=== PATIENT | female | born 1985 | race Caucasian/White ===

== ENCOUNTER → 2019-10-27 | Outpatient (CLI) | payer BC ==
[~2019-10-27] MED LIST: ADDERALL30 MG PO; ALBUTEROL0.83 MG/ML IH; ASPIRIN 81M81 MG/TA2 PO; LEVOTHYROXINE PO; LORTAB 5/500 501 TAB PO; NEB; PERCOCET 325 MG1 TA2 PO; PHENERGAN W/CO120 M1 PO; PHENERGAN W/CO120 ML PO; PREDNISONE20 MG PO; PROVENTIL0.09 MG/A1 IH; RT ADVAIR 128 DISKUS IH; RT ALBUTER2.5 MG/0.5 IH; SINGULAIR10 MG PO; SYNTHROID0.075 MG/T PO; ZITHROMAX 250M250 MG PO; symbicort
== END ==
LOC: COL.RAD 08:18
DX: Z01.812 Encounter for preprocedural laboratory examination (principal); K63.89 Other specified diseases of intestine; I31.3 Pericardial effusion (noninflammatory); R19.7 Diarrhea, unspecified
CPT/HCPCS: Q9967

== ENCOUNTER → 2019-11-24 | Outpatient (CLI) | payer BC | LOC: COL.VAS 11:44 | DX: I35.0 Nonrheumatic aortic (valve) stenosis (principal); I31.3 Pericardial effusion (noninflammatory) ==

== ENCOUNTER 2020-07-30 12:23 | Emergency (ER) | payer BC ==
[~2020-07-30] VITALS: Ht 160 cm; Wt 102.3 kg
[2020-07-30] MEDS ORDERED: AMOXICILLIN 50500 MG PO (12:53)
[2020-07-30] MEDS ORDERED: BACTRIM DS 8001 TAB PO (12:53)
[2020-07-30 13:05] VITALS: BP 149/64; PULSE 80; TEMP 99.1
== END 2020-07-30 13:11 | disposition home or self-care (01) ==
LOC: COL.ER 12:23
DX: N61.0 Mastitis without abscess (principal); Z88.1 Allergy status to other antibiotic agents; Z91.040 Latex allergy status; Z88.5 Allergy status to narcotic agent; Z79.51 Long term (current) use of inhaled steroids

== ENCOUNTER 2020-12-18 05:52 | Emergency (ER) | payer SELFPAY ==
[~2020-12-18] VITALS: Ht 165.1 cm; Wt 111.8 kg
[~2020-12-18 05:52] MED LIST changes: +AMOXICILLIN 50500 MG PO; +BACTRIM DS 8001 TAB PO
[2020-12-18 06:01] VITALS: BP 136/83; TEMP 97.5
[2020-12-18] MEDS ORDERED: ALBUTEROL0.83 MG/ML IH (06:35)
[2020-12-18] MEDS ORDERED: NEB MC (06:35)
[2020-12-18] MEDS ORDERED: PROAIR HFA0.09 MG/AC IH (06:35)
[2020-12-18 07:30] VITALS: PULSE 89
== END 2020-12-18 07:30 | disposition home or self-care (01) ==
LOC: COL.ER 05:52
DX: J45.901 Unspecified asthma with (acute) exacerbation (principal); E03.9 Hypothyroidism, unspecified; F17.210 Nicotine dependence, cigarettes, uncomplicated; Z20.822 Contact with and (suspected) exposure to COVID-19; Z79.890 Hormone replacement therapy; Z79.899 Other long term (current) drug therapy
CPT/HCPCS: J7512

== ENCOUNTER 2021-08-22 01:46 | Emergency (ER) | payer SELFPAY ==
[~2021-08-22] VITALS: Ht 160 cm; Wt 104.5 kg
[~2021-08-22 01:46] MED LIST changes: +NEB MC; +PROAIR HFA0.09 MG/AC IH
[2021-08-22 02:09] LABS: BASO # 0.1 K/mm3 (0.0-0.2); BASO % 0.7 % (0.0-2.0); EOS # 0.3 K/mm3 (0.0-0.7); EOS % 2.5 % (0.0-4.0); GRAN # 7.8 K/mm3 (1.4-6.5); GRAN % 61.2 % (42.2-75.2); LYMPH # 3.6 K/mm3 (1.2-3.4); LYMPH % 28.1 % (20.0-51.0); MEAN CELL VOLUME 85 fl (80.0-100.0); MEAN CORPUSCULAR HEMOGLOBIN 28 pg (27-31); MEAN CORPUSCULAR HGB CONC 33 g/dl (33.0-37.0); MEAN PLATELET VOLUME 10.5 fl (7.4-10.4); MONO # 0.8 K/mm3 (0.1-0.6); MONO % 6.4 % (1.7-9.3); PLATELET COUNT 233 K/mm3 (130-400); REDCELL DISTRIBUTION WIDTH-CV 15.7 % (11.5-14.5)
[2021-08-22 02:26] LABS: ALBUMIN 4.5 gm/dL (3.5-5.0); BILIRUBIN,TOTAL 0.4 mg/dL (0.2-1.2); CALCIUM 9.1 mg/dL (8.4-10.2); CREATININE, serum 1.15 mg/dL (0.57-1.11); POTASSIUM 3.9 mmol/L (3.5-4.5); TOTAL PROTEIN 8.2 gm/dL (6.2-8.1)
[2021-08-22 03:05] LABS: COLLECTION METHOD CLEAN CATCH
[2021-08-22 03:12] LABS: MUCOUS Present (NOT PRESENT); PH 6 (5-8); URINE APPEARANCE Hazy (CLEAR/HAZY); URINE BACTERIA Rare /hpf (NONE SEEN); URINE BILIRUBIN Negative (NEGATIVE); URINE BLOOD Negative (NEGATIVE); URINE COLOR Yellow (YELLOW); URINE GLUCOSE Negative (NEGATIVE); URINE KETONE Negative (NEGATIVE); URINE LEUKOCYTE ESTERASE Negative (NEGATIVE); URINE NITRATE Negative (NEGATIVE); URINE PROTEIN(semi-quant) Negative (NEGATIVE); URINE RBC 0-2 /hpf (0-2)
[2021-08-22 03:47] VITALS: BP 124/82; PULSE 87; TEMP 97.9
== END 2021-08-22 03:47 | disposition home or self-care (01) ==
LOC: COL.ER 01:46
PROVIDERS: Physician Assistant
DX: D64.9 Anemia, unspecified (principal); R00.0 Tachycardia, unspecified; E03.9 Hypothyroidism, unspecified; Z91.040 Latex allergy status; Z79.890 Hormone replacement therapy
CPT/HCPCS: J7030

== ENCOUNTER 2021-09-12 00:58 | Emergency (ER) | payer BC ==
[~2021-09-12] VITALS: Ht 160 cm; Wt 104.5 kg
[2021-09-12 01:09] VITALS: TEMP 97.6
[2021-09-12 02:03] LABS: BASO # 0.1 K/mm3 (0.0-0.2); BASO % 0.8 % (0.0-2.0); EOS # 0.3 K/mm3 (0.0-0.7); EOS % 2.7 % (0.0-4.0); GRAN # 6.5 K/mm3 (1.4-6.5); GRAN % 62.4 % (42.2-75.2); HEMOGLOBIN 10.9 g/dl (12.5-16.0); LYMPH # 2.9 K/mm3 (1.2-3.4); LYMPH % 27.8 % (20.0-51.0); MEAN CELL VOLUME 85 fl (80.0-100.0); MEAN CORPUSCULAR HEMOGLOBIN 28 pg (27-31); MEAN CORPUSCULAR HGB CONC 33 g/dl (33.0-37.0); MONO # 0.6 K/mm3 (0.1-0.6); MONO % 5.6 % (1.7-9.3); PLATELET COUNT 236 K/mm3 (130-400); RED BLOOD COUNT 3.94 M/mm3 (4.10-5.30); REDCELL DISTRIBUTION WIDTH-CV 14.8 % (11.5-14.5)
[2021-09-12 02:04] LABS: HEMATOCRIT 33.5 % (37.0-47.0)
[2021-09-12 02:18] LABS: ALANINE AMINOTRANSFERASE 16 U/L (0-55); ALKALINE PHOSPHATASE 54 U/L (40-150); ANION GAP 12 mmol/L (7-16); AST,SGOT 13 U/L (5-34); BILIRUBIN,TOTAL 0.4 mg/dL (0.2-1.2); BLOOD UREA NITROGEN 11 mg/dL (7-19); CALCIUM 8.4 mg/dL (8.4-10.2); CARBON DIOXIDE 21 mmol/L (22-29); CHLORIDE 106 mmol/L (98-107); CREATININE, serum 0.99 mg/dL (0.57-1.11); GLUCOSE 105 mg/dL (70-99); POTASSIUM 3.7 mmol/L (3.5-4.5); SODIUM 139 mmol/L (136-145); TOTAL PROTEIN 7.9 gm/dL (6.2-8.1)
[2021-09-12 02:26] LABS: TROPONIN-I < 0.010 ng/mL (0.00-0.033)
[2021-09-12] MEDS ORDERED: PREDNISONE20 MG PO (02:59)
[2021-09-12 03:24] VITALS: BP 122/81; PULSE 74
== END 2021-09-12 03:25 | disposition home or self-care (01) ==
LOC: COL.ER 00:58
PROVIDERS: Emergency Medicine
DX: R07.81 Pleurodynia (principal); F17.200 Nicotine dependence, unspecified, uncomplicated; Z91.040 Latex allergy status; Z82.49 Family history of ischemic heart disease and other diseases of the circulatory system; Z82.5 Family history of asthma and other chronic lower respiratory diseases
CPT/HCPCS: J1885; J7512

== ENCOUNTER 2024-03-15 11:35 | Inpatient (IN) | payer SELFPAY ==
[~2024-03-15] VITALS: Ht 160 cm; Wt 133.5 kg
[~2024-03-15 11:35] MED LIST changes: +FLEXERIL 1010 MG/TAB PO
[2024-03-15 12:38] LABS: BASO # 0.1 K/mm3 (0.0-0.2); BASO % 0.6 % (0.0-2.0); EOS # 0.3 K/mm3 (0.0-0.7); GRAN # 7.3 K/mm3 (1.4-6.5); GRAN % 67.5 % (42.2-75.2); HEMATOCRIT 33.4 % (37.0-47.0); HEMOGLOBIN 10.6 g/dl (12.5-16.0); LYMPH # 2.4 K/mm3 (1.2-3.4); LYMPH % 21.7 % (20.0-51.0); MEAN CELL VOLUME 80 fl (80.0-100.0); MEAN CORPUSCULAR HEMOGLOBIN 25 pg (27-31); MEAN CORPUSCULAR HGB CONC 32 g/dl (33.0-37.0); MEAN PLATELET VOLUME 10.8 fl (7.4-10.4); MONO # 0.6 K/mm3 (0.1-0.6); MONO % 5.9 % (1.7-9.3); PLATELET COUNT 259 K/mm3 (130-400)
[2024-03-15 12:59] LABS: ALANINE AMINOTRANSFERASE 9 U/L (0-55); ALKALINE PHOSPHATASE 58 U/L (40-150); ANION GAP 11 mmol/L (7-16); AST,SGOT 11 U/L (5-34); BILIRUBIN,TOTAL 0.7 mg/dL (0.2-1.2); BLOOD UREA NITROGEN 12 mg/dL (7-19); CALCIUM 8.8 mg/dL (8.4-10.2); CHLORIDE 108 mEq/L (98-107); CREATININE, serum 1.08 mg/dL (0.57-1.11); GLUCOSE 109 mg/dL (70-99); LIPASE 18 U/L (8-78); POTASSIUM 4.1 mEq/L (3.5-4.5); SODIUM 139 mEq/L (136-145); TOTAL PROTEIN 8.1 g/dl (6.2-8.1)
[2024-03-15 13:47] LABS: TROPONIN-I < 0.010 ng/mL (0.00-0.033)
[2024-03-15] MEDS ORDERED: EUTHYROX50 MCG PO (16:20)
[2024-03-15] MEDS ORDERED: LEXAPRO 10MG10 MG PO (16:21)
[2024-03-15 16:30] VITALS: BP 125/89; PULSE 74; TEMP 98.4
[2024-03-15 17:10] VITALS: BP_SYST 125
--- NOTE | 2024-03-15 17:31 | NUR ---
PATIENT ARRIVED TO MEDICAL UNIT AT APPROX 1610. PATIENT IS ALERT, ORIENTED, AND HAS STEADY GAIT. VSS. PATIENT STABLE ON RA. INTAKE AND ASSESSMENT COMPLETE. MED REC COMPLETE. PATIENT DENIES SOA OR PAIN. ORIENTED TO ROOM, CALL LIGHT WITHIN REACH.
[2024-03-15 19:44] VITALS: BP 123/81; PULSE 76; TEMP 97.9
[2024-03-15 20:45] VITALS: BP_SYST 123
--- NOTE | 2024-03-15 20:45 | NUR ---
Patient resting in bed. Denies any pain or needs at this time. Assessment complete. IV in left AC flushes easily without complications. Call light and personal items in reach. Bed in low position.
[2024-03-15 23:27] VITALS: BP 151/81; PULSE 79; TEMP 98.7
[2024-03-16] VITALS (12 sets, daily range): BP systolic 115–151; BP diastolic 80–85; PULSE 69–82; TEMP 97.9–98.5
[2024-03-16 06:30] LABS: BASO # 0.1 K/mm3 (0.0-0.2); BASO % 0.5 % (0.0-2.0); EOS # 0.4 K/mm3 (0.0-0.7); EOS % 3.5 % (0.0-4.0); GRAN # 7.4 K/mm3 (1.4-6.5); GRAN % 64.3 % (42.2-75.2); LYMPH # 2.9 K/mm3 (1.2-3.4); MEAN CELL VOLUME 79 fl (80.0-100.0); MEAN CORPUSCULAR HGB CONC 32 g/dl (33.0-37.0); MEAN PLATELET VOLUME 10.2 fl (7.4-10.4); MONO # 0.6 K/mm3 (0.1-0.6); MONO % 5.5 % (1.7-9.3); PLATELET COUNT 245 K/mm3 (130-400); RED BLOOD COUNT 3.93 M/mm3 (4.10-5.30); REDCELL DISTRIBUTION WIDTH-CV 17.1 % (11.5-14.5)
[2024-03-16 06:36] LABS: HEMATOCRIT 31.1 % (37.0-47.0); HEMOGLOBIN 9.9 g/dl (12.5-16.0); MEAN CORPUSCULAR HEMOGLOBIN 25 pg (27-31)
[2024-03-16 06:51] LABS: C-REACTIVE PROTEIN 0.6 mg/dL (0.00-0.50); CALCIUM 8.6 mg/dL (8.4-10.2); CREATININE, serum 0.97 mg/dL (0.57-1.11); POTASSIUM 3.9 mEq/L (3.5-4.5)
[2024-03-16] MEDS ORDERED: Ibuprofen 400 MG TAB PO PRN (08:15)
--- NOTE | 2024-03-16 10:43 | NUR ---
[facility] met with patient to complete initial assessment for discharge planning. Patient verified that she lives in [place] with her Sabas ([phone]), her mother Francoise Rivas ([phone]) and her father in law, Patient denies having a DPOA completed and declines to complete one. Patient sees Dr. Rashid as her PCP and uses [facility] pharmacy without difficulty. Patient states her only DME is a nebulizer. Patient is uninsured at this time and states that she will have insurance starting in April 2024. Financial Counselor Kylie to meet with patient to complete FAA. Patient will return home at discharge. Discharge plan: Home
[2024-03-16] MEDS ORDERED: EUTHYROX200 MCG PO (12:30)
--- NOTE | 2024-03-16 13:55 | NUR ---
D: Casing Crew Pusher stopped by room on rounds. A: Pt was resting and content. Pt has no needs right now. P: Casing Crew Pusher informed pt that if she needed anything to let her nurse know. Casing Crew Pusher will follow up as needed.
--- NOTE | 2024-03-16 15:35 | NUR ---
dSocial worker attended multidisciplinary team meeting to discuss patient's progress and discharge plan. Plan is for patient to return home. Everyone is in agreement with this plan. Discharge plan: Home
--- NOTE | 2024-03-16 19:07 | NUR ---
PATIENT SITTING UP IN BED WITH TV ON WITH NO FAMILY PRESENT WITH NO ACUTE DISTRESS NOTED. PATIENT ON ROOM AIR. INT TO RIGHT AC INTACT WITH NO COMPLICATIONS NOTED. TELEMETRY INTACT. BEDSIDE SHIFT REPORT COMPLETED WITH MARCEL AT THIS TIME. PATIENT REQUESTED PHONE BE CHARGED. ROUGHER HELPER NURSE TOOK PATIENT PHONE TO DESK AND PLACED IT ON EDUCATIONAL DIAGNOSTICIAN. PATIENT DENIES ANY OTHER NEEDS. BED IN LOW POSITION WITH WHEELS LOCKED WITH RAILS UP X2 AND CALL LIGHT WITHIN REACH.
--- NOTE | 2024-03-16 21:35 | NUR ---
PATIENT SITTING UP IN BED WATCHING TV WITH NO FAMILY PRESENT WITH NO ACUTE DISTRESS NOTED. PATIENT ON ROOM AIR. INT TO RIGHT AC INTACT WITH NO COMPLICATIONS NOTED. TELEMETRY INTACT. ASSESSMENT AND MEDICATION ADMINISTRATION COMPLETED AT THIS TIME. PATIENT TOLERATED WELL. CELL PHONE GIVEN BACK TO PATIENT AT THIS TIME FULLY CHARGED. PATIENT DENIES ANY NEEDS. BED IN LOW POSITION WITH WHEELS LOCKED WITH RAILS UP X2 AND CALL LIGHT WITHIN REACH.
[2024-03-17] VITALS (7 sets, daily range): BP systolic 115–140; BP diastolic 75–83; PULSE 70–76; TEMP 97.9–98.6
[2024-03-17 06:41] LABS: BASO # 0.1 K/mm3 (0.0-0.2); BASO % 0.6 % (0.0-2.0); EOS # 0.3 K/mm3 (0.0-0.7); EOS % 3.2 % (0.0-4.0); GRAN # 6.6 K/mm3 (1.4-6.5); GRAN % 62.6 % (42.2-75.2); LYMPH # 2.8 K/mm3 (1.2-3.4); LYMPH % 26.3 % (20.0-51.0); MEAN CELL VOLUME 79 fl (80.0-100.0); MEAN CORPUSCULAR HGB CONC 32 g/dl (33.0-37.0); MEAN PLATELET VOLUME 10.6 fl (7.4-10.4); MONO # 0.7 K/mm3 (0.1-0.6); MONO % 6.2 % (1.7-9.3); PLATELET COUNT 235 K/mm3 (130-400); RED BLOOD COUNT 3.97 M/mm3 (4.10-5.30); REDCELL DISTRIBUTION WIDTH-CV 17.1 % (11.5-14.5)
[2024-03-17 06:50] LABS: CALCIUM 8.6 mg/dL (8.4-10.2); CREATININE, serum 0.95 mg/dL (0.57-1.11)
[2024-03-17 07:00] LABS: HEMATOCRIT 31.4 % (37.0-47.0); HEMOGLOBIN 9.9 g/dl (12.5-16.0); MEAN CORPUSCULAR HEMOGLOBIN 25 pg (27-31)
[2024-03-17] MEDS ORDERED: EUTHYROX75 MCG PO (10:51)
[2024-03-17 12:00] LABS: RETIC # 0.09 M/mm3 (0.02-0.16); RETIC % 2.2 % (0.5-3.52)
--- NOTE | 2024-03-17 13:00 | NUR ---
THIS RN PROVIDED PATIENT WITH DISCHARGE EDUCATION AND INSTRUCTIONS. ALL QUESTIONS ANSWERED. PATIENT DENIES FURTHER NEEDS OR CONCERNS AT THIS TIME.
--- NOTE | 2024-03-17 13:05 | NUR ---
PATIENT AMBULATED OFF UNIT ESCORTED BY PCT DOWNSTAIRS. ALL BELONINGS WITH PATIENT.
== END 2024-03-17 13:05 | disposition home or self-care (01) | DRG 316 ==
LOC: COL.ER 11:35 → MEDICAL 15:23
PROVIDERS: Emergency Medicine; Physician Assistant; ADMIT Internal Medicine
DX: I31.39 Other pericardial effusion (noninflammatory) (principal); E03.9 Hypothyroidism, unspecified; F32.A Depression, unspecified; Z79.890 Hormone replacement therapy; J45.909 Unspecified asthma, uncomplicated; Z87.891 Personal history of nicotine dependence; D50.9 Iron deficiency anemia, unspecified; J06.9 Acute upper respiratory infection, unspecified